=== PATIENT | female | born 1950 | race Caucasian/White ===

== ENCOUNTER → 2023-12-13 12:57 | Outpatient (REF) | payer BC, SELFPAY | LOC: MRI 3T 12:57 | PROVIDERS: ATTENDING PHYSICIAN Psychiatry & Neurology Neurology | DX: M54.16 Radiculopathy, lumbar region (principal) | CPT/HCPCS: 72148 ==

== ENCOUNTER 2024-07-29 06:25 | Day surgery (SDC) | payer BC, SELFPAY ==
[2024-07-21 13:50] VITALS: BMI 28.4
[2024-07-29 06:42] VITALS: BP 156/60
[2024-07-29 08:46] VITALS: BP 144/62
[2024-07-29 09:01] VITALS: BP 113/95
[2024-07-29 09:16] VITALS: BP 119/89
[2024-07-29 09:27] VITALS: BP 74/57
[2024-07-29 09:29] VITALS: BP 130/44
--- NOTE | 2024-07-29 09:48 | ITS.CL.IMPLP ---
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
Implant Loop
Procedure Report:
Date of Procedure: July 29, 2024.
Procedure: Insertable Loop Recorder Explant.
Indication: Loop at the end of service.
Performing physician: Monroe Woods MD, [facility].
Explant: [email or web address]; Model: M301; Serial# [id number].
Technique: A time out was performed per protocol. The patient was prepped and draped in the usual fashion. Anesthesia was administered by the anesthesia staff. Local anesthetic was applied to the left prepectoral subcutaneous tissue. An incision
was made over the superior aspect of the device. Dissection was carried to the capsule. The capsule was entered. The old device was explanted. The pocket appeared normal. Hemostasis was excellent. The pocket was irrigated saline. The incision was
closed with 4-0 Monocryl suture. The skin was closed with steri-strips. There was no blood loss. There were no complications. No fluoroscopy was used.
Conclusion: Uncomplicated insertable loop explantation.
Recommendation: Routine incision care.
== END 2024-07-29 09:35 | disposition home or self-care (01) ==
LOC: CATH 06:25
PROVIDERS: ATTENDING PHYSICIAN Internal Medicine Cardiovascular Disease; FAMILY PHYSICIAN Internal Medicine
DX: Z09 Encounter for follow-up examination after completed treatment for conditions other than malignant neoplasm (principal); R55 Syncope and collapse; I35.0 Nonrheumatic aortic (valve) stenosis; I45.10 Unspecified right bundle-branch block; I10 Essential (primary) hypertension; E78.5 Hyperlipidemia, unspecified; F41.9 Anxiety disorder, unspecified; F32.A Depression, unspecified; Z87.891 Personal history of nicotine dependence; Z79.82 Long term (current) use of aspirin
CPT/HCPCS: 33286; 93005

== ENCOUNTER → 2024-09-21 12:49 | Outpatient (REF) | payer BC, SELFPAY | LOC: HWRCS 12:49 | PROVIDERS: ATTENDING PHYSICIAN Internal Medicine Cardiovascular Disease; FAMILY PHYSICIAN Internal Medicine | DX: I35.0 Nonrheumatic aortic (valve) stenosis (principal); I35.1 Nonrheumatic aortic (valve) insufficiency; I10 Essential (primary) hypertension | CPT/HCPCS: 93306 ==